=== PATIENT | female | born 1950 | race Caucasian/White ===

== ENCOUNTER → 2016-07-26 | Outpatient (CLI) | payer OTHER | LOC: FIMAGING 15:53 | PROVIDERS: ATTEND Internal Medicine | DX: Z12.31 Encounter for screening mammogram for malignant neoplasm of breast (principal) | CPT/HCPCS: G0202 ==

== ENCOUNTER → 2017-02-18 | Outpatient (CLI) | payer OTHER | LOC: FIMAGING 14:44 | PROVIDERS: ATTEND Internal Medicine | DX: Z13.820 Encounter for screening for osteoporosis (principal); E07.9 Disorder of thyroid, unspecified ==

== ENCOUNTER → 2017-08-20 | Outpatient (CLI) | payer OTHER ==
[~2017-08-20] MED LIST: IOPAMIDOL (ISOVUE-300) 100 ML BTL ONE
== END ==
LOC: FIMAGING 07:38
PROVIDERS: ATTEND Internal Medicine
DX: R10.812 Left upper quadrant abdominal tenderness (principal); R07.9 Chest pain, unspecified; K76.89 Other specified diseases of liver; I77.810 Thoracic aortic ectasia; M51.36 Other intervertebral disc degeneration, lumbar region
CPT/HCPCS: 71260; 74160; Q9967

== ENCOUNTER 2017-09-13 22:10 | Inpatient (IN) | payer OTHER ==
[2017-09-13] MEDS ORDERED: NS 1,000 ML IV ONE (22:19)
--- NOTE | 2017-09-13 22:19 | EDPHY ---
H & P Stated Complaint: Chest pain x1 hour, back pain, abd pain Time Seen by Provider: 09/13/17 22:19 HPI/ROS: HPI CHIEF COMPLAINT: Abdominal pain, chest pain, back pain HISTORY OF PRESENT ILLNESS: This patient is 66-year-old female, she states she has a history of hypertension, hyperlipidemia and thyroid disease, she presents emergency room with left upper quadrant abdominal pain that radiates up into her back intrascapular early and then goes and wraps around to her chest. She states this is the 3rd episode of this. She states this started 2 hr ago while she was at rest. She has had 3 episodes of this including the 1 tonight she states she seen her primary care doctor for this multiple times and had blood work performed and even had a CT scan of her chest abdomen pelvis she states that his wall normal. This was done in August. She was told if it happened to her again she should seek medical attention in the emergency room. Upon arrival to the emergency room she does complain of some chest discomfort, back pain and left upper quadrant abdominal pain. She denies fever. Denies pleuritic pain or significant shortness of breath. She does state typically gets better after she has a vomiting episode. However takes her few days to recover. Additionally patient reports increasing fullness and does not have an appetite. Additionally patient reports she due for stress test this Friday. Past Medical History: Hypertension, hyperlipidemia, thyroid disease Past Surgical History: Bilateral knee replacements Social History: Denies drugs alcohol tobacco. Family History: Noncontributory ROS REVIEW OF SYSTEMS: A comprehensive 10 point review of systems is otherwise negative aside from elements mentioned in the history of present illness. Exam Constitutional triage nursing summary reviewed, vital signs reviewed, awake/ alert. Eyes normal conjunctivae and sclera, EOMI, PERRLA. HENT normal inspection, atraumatic, moist mucus membranes, no epistaxis, neck supple/ no meningismus, no raccoon eyes. Respiratory clear to auscultation bilaterally, normal breath sounds, no respiratory distress, no wheezing. Cardiovascular rate normal, regular rhythm, no murmur, no edema, distal pulses normal. Gastrointestinal soft, non-tender, no rebound, no guarding, normal bowel sounds, no distension, no pulsatile mass. Genitourinary no CVA tenderness. Musculoskeletal no midline vertebral tenderness, full range of motion, no calf swelling, no tenderness of extremities, no meningismus, good pulses, neurovascularly intact. Skin pink, warm, & dry, no rash, skin atraumatic. Neurologic awake, alert and oriented x 3, AAOx3, moves all 4 extremities equally, motor intact, sensory intact, CN II-XII intact, normal cerebellar, normal vision, normal speech. Psychiatric normal mood/affect. Heme/Lymph/Immune no lymphadenopathy. Differential diagnosis includes but is not limited to: ACS, atypical chest pain , pneumothorax, pneumonia, pulmonary embolism, aortic dissection, congestive heart failure, tumor, musculoskeletal pain, esophageal pain, GERD, peptic ulcer disease, pancreatitis Differential diagnosis includes but is not limited to and in no particular order: Bowel obstruction, appendicitis, gallbladder disease, diverticulitis, colitis, enteritis, perforated viscus, gastritis, GERD, esophagitis, urinary tract infection, pyelonephritis, kidney stones Medical Decision Making: Plan for this patient IV establishment, IV fluid bolus , check D-dimer, check troponin, full monitoring coordinator, chest x-ray, low threshold for CT angiogram chest. Evaluate for chest pain abdominal pain back pain. Re-evaluation: EKG interpretation by me on record in [facility] system. Impression time of EKG 2226, sinus rhythm rate of 61, T-wave abnormality lead 3. No ST elevation no ST depression subtle T-wave abnormalities V1 V2 flattening in V3. Troponin 0.00 Repeat EKG time a repeat EKG 2319, this is sinus rhythm rate of 54 some motion artifact in the lateral leads [address] elevation no significant ST depression or T-wave abnormality seen in V1 V2 flattening in V3. CT angiogram chest abdomen pelvis with IV contrast shows no evidence of aortic dissection. Noted slightly at enlarged aorta. Given the patient's abnormal EKG T-wave abnormalities, the complaint of chest pain, abdominal pain back pain patient need to be admitted the hospital for further evaluation this and stress test. Risk factors include her age, obesity, hypertension, hyperlipidemia HEART Score for Major Cardiac Events from [email or web address] on 09/13/2017 All calculations should be rechecked by clinician prior to use RESULT SUMMARY: 5 points Moderate Score (4-6 points) Risk of MACE of 12-16.6%. INPUTS: History > 1 = Moderately suspicious EKG > 1 = Non-specific repolarization disturbance Age > 2 = 65 Risk factors > 1 = 1-2 risk factors Initial troponin > 0 = normal limit 2354: Patient re-evaluated this time she is chest pain-free. Resting comfortably. Agrees for hospital admission. Source: Patient - Personal History Current Tetanus Diphtheria and Acellular Pertussis (TDAP): No - Medical/Surgical History Hx Asthma: No Hx Chronic Respiratory Disease: No Hx Diabetes: No Hx Cardiac Disease: Yes Hx Renal Disease: No Hx Cirrhosis: No Hx Alcoholism: No Hx HIV/AIDS: No Hx Splenectomy or Spleen Trauma: No Other PMH: Hypothyroid,HTN,anxiety,heart murmur,Gerd - Social History Smoking Status: Never smoked Constitutional: Initial Vital Signs Temperature (C) 36.7 C 09/13/17 22:14 Heart Rate 66 09/13/17 22:14 Respiratory Rate 20 09/13/17 22:14 O2 Sat (%) 96 09/13/17 22:14 O2 Delivery Mode Room Air O2 (L/minute) 2 Allergies/Adverse Reactions: Tetanus Vaccines and Toxoid [Tetanus Vaccines & Toxoid] Allergy (Verified 22:14) Other-Enter Comments Home Medications: Medication Instructions Recorded Atorvastatin Calcium 10 mg PO DAILY 09/14/17 Hydrochlorothiazide [HCTZ (*)] 25 mg PO DAILY 09/14/17 Lansoprazole 30 mg PO DAILY 09/14/17 Levothyroxine Sodium 150 mcg PO DAILY 09/14/17 Lisinopril [Zestril 2.5 mg (*)] 2.5 mg PO DAILY 09/14/17 Acetaminophen [Tylenol ES 500 mg 1,000 mg PO Q8H tab 09/17/17 (*)] HYDROmorphone HCL [Dilaudid 2 mg 2 - 4 mg PO Q4H PRN #10 tab 09/17/17 (*)] Ibuprofen [Motrin (*)] 200 - 400 mg PO DAILY PRN #0 09/17/17 Ketorolac Tromethamine [Toradol 1 tab PO Q6 4 Days tab 09/17/17 10mg tab] Medical Decision Making - Data Points Laboratory Results: Laboratory Results 09/13/17 22:30 09/14/17 03:55 Medications Given: Discontinued Medications Acetaminophen (Tylenol) 650 mg PO Q4HRS PRN PRN Reason: Pain, Mild/Fever, Can Take PO Stop: 03/13/18 00:32 Last Admin: 09/15/17 14:43 Dose: 325 mg Acetaminophen (Tylenol) 1,000 mg PO Q8H [facility] Stop: 03/15/18 14:59 Last Admin: 09/17/17 15:06 Dose: 1,000 mg Al Hydroxide/Mg Hydroxide (Maalox Susp) 30 ml PO EDNOW ONE Stop: 09/14/17 00:15 Last Admin: 09/14/17 00:20 Dose: 30 ml Atorvastatin Calcium (Lipitor) 10 mg PO DAILY [facility] Stop: 03/13/18 17:14 Last Admin: 09/17/17 08:03 Dose: 10 mg Bupivacaine HCl/Epinephrine Bitart (Bupivacaine/Epi) Confirm Administered Dose 30 ml .ROUTE .STK-MED ONE Stop: 09/16/17 12:22 Last Admin: 09/16/17 15:55 Dose: Not Given Cefazolin Sodium (Ancef Syringe) Confirm Administered Dose 1 gm .ROUTE .STK-MED ONE Stop: 09/16/17 13:32 Last Admin: 09/16/17 13:48 Dose: 1 gm Fentanyl (Sublimaze) 25 - 100 mcg IVP Q5M PRN PRN Reason: PACU, IMMEDIATE Pain control Stop: 09/16/17 14:38 Last Admin: 09/16/17 15:03 Dose: 25 mcg Heparin Sodium (Porcine) (Heparin Sc Injection) Confirm Administered Dose 5,000 unit .ROUTE .STK-MED ONE Stop: 09/16/17 13:32 Last Admin: 09/16/17 13:48 Dose: 5,000 unit Hydrochlorothiazide (Hydrochlorothiazide) 25 mg PO DAILY [facility] Stop: 03/13/18 17:14 Last Admin: 09/17/17 08:04 Dose: 25 mg Hydromorphone HCl (Dilaudid) 0.2 - 0.4 mg IVP Q1H PRN PRN Reason: Pain, Severe Unable to Take PO Stop: 09/26/17 15:00 Last Admin: 09/17/17 14:43 Dose: 0.2 mg Hyoscyamine Sulfate (Levsin, Hyomax-Sl) 0.25 mg PO EDNOW ONE Stop: 09/14/17 00:15 Last Admin: 09/14/17 00:20 Dose: 0.25 mg Sodium Chloride (Ns) 1,000 mls @ 0 mls/hr IV EDNOW ONE; Wide Open PRN Reason: Protocol Stop: 09/13/17 22:20 Last Admin: 09/13/17 23:07 Dose: 1,000 mls Lactated Ringer's (Lr) 1,000 mls @ 0 mls/hr IV ONCE ONE PRN Reason: As Directed Stop: 09/16/17 11:56 Last Admin: 09/16/17 12:17 Dose: 1,000 mls Cefazolin Sodium/Dextrose (Ancef 2 Gm) 100 mls @ 200 mls/hr IV ONCALL ONE Stop: 09/16/17 13:29 Last Admin: 09/16/17 12:55 Dose: 100 mls Lactated Ringer's (Lr) 1,000 mls @ 100 mls/hr IV CONT [facility] Stop: 03/15/18 14:59 Last Admin: 09/16/17 19:32 Dose: 1,000 mls Cefazolin Sodium/Dextrose (Ancef 2 Gm) 100 mls @ 200 mls/hr IV Q8H [facility] Stop: 09/17/17 05:29 Last Admin: 09/17/17 05:49 Dose: 100 mls Iothalamate Meglumine (Conray) Confirm Administered Dose 50 ml IV .STK-MED ONE Stop: 09/16/17 12:22 Last Admin: 09/16/17 15:55 Dose: Not Given Ketorolac Tromethamine (Toradol) 30 mg IVP Q6HRS [facility] Stop: 09/21/17 17:59 Last Admin: 09/17/17 12:27 Dose: 30 mg Levothyroxine Sodium (Synthroid) 150 mcg PO DAILY [facility] Stop: 03/13/18 17:14 Last Admin: 09/17/17 08:04 Dose: 150 mcg Lidocaine (Lidocaine 2% Viscous) 15 ml PO EDNOW ONE Stop: 09/14/17 00:15 Last Admin: 09/14/17 00:20 Dose: 15 ml Lisinopril (Zestril) 2.5 mg PO DAILY [facility] Stop: 03/13/18 17:14 Last Admin: 09/17/17 08:04 Dose: 2.5 mg Lorazepam (Ativan Injection) 0.5 - 1 mg IVP Q6HRS PRN PRN Reason: Anxiety, Unable to Take PO Stop: 03/13/18 01:44 Last Admin: 09/14/17 02:39 Dose: 1 mg Miscellaneous Information (Patch Removal) 1 ea TD DAILY21 [facility] Stop: 03/13/18 20:59 Last Admin: 09/17/17 00:11 Dose: Not Given Miscellaneous Medication (Icy Hot Lidocaine/Menthol 4%/1% Patch) 1 patch TD DAILY [facility] Stop: 03/13/18 08:59 Last Admin: 09/17/17 08:05 Dose: Not Given Morphine Sulfate (Morphine) 1 - 2 mg IVP Q1HR PRN PRN Reason: Pain, Severe Unable to Take PO Stop: 09/24/17 00:32 Last Admin: 09/14/17 01:18 Dose: 2 mg Morphine Sulfate (Morphine) 1 - 4 mg IVP Q10M PRN PRN Reason: PACU, PAIN Stop: 09/16/17 14:38 Last Admin: 09/16/17 15:10 Dose: 1 mg Ondansetron HCl (Zofran) 4 mg IVP EDNOW ONE Stop: 09/14/17 00:32 Last Admin: 09/14/17 00:34 Dose: 4 mg Pantoprazole Sodium (Protonix) 40 mg IVP ONCE ONE Stop: 09/14/17 01:58 Last Admin: 09/14/17 02:29 Dose: 40 mg Pantoprazole Sodium (Protonix) 40 mg PO DAILY [facility] Stop: 03/13/18 17:14 Last Admin: 09/17/17 08:04 Dose: 40 mg Promethazine HCl (Phenergan) 6.25 - 12.5 mg IVP Q6HRS PRN PRN Reason: Nausea/Vomiting, Can't Take PO Stop: 03/13/18 01:06 Last Admin: 09/14/17 02:39 Dose: 12.5 mg Point of Care Test Results: Chemistry 09/13/17 22:32 POC Troponin I 0.00 ng/mL ng/mL (0.00-0.08) Departure - Departure Disposition: [facility] Acute Clinical Impression: Abnormal EKG Chest pain Qualifiers: Chest pain type: unspecified Qualified Code(s): R07.9 - Chest pain, unspecified Condition: Good
--- NOTE | 2017-09-13 22:29 | CPEKG ---
Heart Rate: 61 RR Interval: 984 P-R Interval: 148 QRSD Interval: 96 QT Interval: 460 QTC Interval: 464 P [place]: 33 QRS [place]: -25 T Wave [place]: 11 EKG Severity - BORDERLINE ECG - EKG Impression: SINUS RHYTHM EKG Impression: BORDERLINE LEFT AXIS DEVIATION EKG Impression: BORDERLINE T ABNORMALITIES, ANTERIOR LEADS Electronically Signed By: Obey Gomez 14-Sep-2017 07:37:44
[2017-09-13 22:54] LABS: INR 0.96 (0.83-1.16)
[2017-09-13 23:05] LABS: PLATELET COUNT 272 10^3/uL (150-400)
[2017-09-13] MEDS ORDERED: IOPAMIDOL (ISOVUE 370) 100 ML BTL IV ONE (23:17)
[2017-09-14] MEDS ORDERED: MAG HYDROX/AL HYDROX/SIMETH 30 ML UDCUP PO ONE (00:14)
[2017-09-14] MEDS ORDERED: LIDOCAINE 2% VISCOUS 15 ML UDCUP PO ONE (00:14)
[2017-09-14] MEDS ORDERED: HYOSCYAMINE SULFATE 0.125 MG TAB PO ONE (00:14)
[2017-09-14] MEDS ORDERED: ONDANSETRON 4 MG/2 ML VIAL IVP ONE (00:31)
[2017-09-14] MEDS ORDERED: ONDANSETRON 4 MG/2 ML VIAL ONE (00:32)
[2017-09-14] MEDS ORDERED: ONDANSETRON 4 MG/2 ML VIAL IVP PRN (00:33)
[2017-09-14] MEDS ORDERED: NITROGLYCERIN 0.4 MG BTL SL PRN (00:35)
[2017-09-14] MEDS ORDERED: PROMETHAZINE HCL 25 MG/ML INJ IVP PRN (01:07)
[2017-09-14] MEDS ORDERED: LORazepam 2 MG/ML INJ IVP PRN (01:45)
[2017-09-14] MEDS ORDERED: PANTOPRAZOLE SODIUM 40 MG VIAL IVP ONE (01:57)
--- NOTE | 2017-09-14 02:11 | PDGENHP ---
History and Physical - Chief Complaint Left lower chest pain. - History of Present Illness Source-patient provides history appears reliable. EMR reviewed and case discussed with ED provider. HPI-this is a very pleasant 66-year-old female with history of HTN, HLD, GERD, hypothyroidism, anxiety, obesity(BMI 38.8) who presents emergency department today with complaints of left lower chest left upper abdominal pain. Patient reports pain is aching below her ribs. Shortly after onset it will radiate straight across her abdomen upper abdomen and then radiate into her shoulder blades and mid to lower back. Patient denies any radicular type symptoms. No associated diaphoresis, shortness of breath, palpitations. Patient denies any orthopnea or PND. She denies any lower extremity edema. Patient's pain is occasionally reproducible. Onset can be at rest or with activity. Patient denies any known association with oral intake or foods. Patient denies any reflux type symptoms or burning. No fevers chills or recent sick contacts. Patient denies any melena or hematochezia. No diarrhea. Patient without a known history of peptic ulcer disease. She does take lansoprazole on a daily basis. History Information - Allergies/Home Medication List Allergies/Adverse Reactions: Tetanus Vaccines and Toxoid [Tetanus Vaccines & Toxoid] Allergy (Verified 22:14) Other-Enter Comments Home Medications: Atorvastatin Calcium [Lipitor 10 mg (*)] 10 mg PO DAILY 09/21/14 [Last Taken 09/13 07:15] Hydrochlorothiazide [HCTZ (*)] 25 mg PO DAILY 09/21/14 [Last Taken 07/04/15 09: 00] Lansoprazole [Lansoprazole 30 mg tab] 30 mg PO DAILY 09/21/14 [Last Taken 07:15] Levothyroxine [Synthroid 137 mcg (*)] 137 mcg PO DAILY06 09/21/14 [Last Taken 07:15] Lisinopril [Zestril 2.5 mg (*)] 2.5 mg PO DAILY 09/21/14 [Last Taken 07/04/15 09 :00] Sertraline HCl [Zoloft 50mg (*)] 50 mg PO DAILY 09/21/14 [Last Taken 07/05/15 07 :15] I have personally reviewed and updated: family history, medical history, social history, surgical history - Past Medical History arthritis (Degenerative joint disease status post bilateral total knee arthroplasty.), hypertension, hyperlipidemia Additional medical history: Anxiety, heart murmur, hypothyroidism - Surgical History Additional surgical history: Bilateral TKA. BTL. - Family History Negative for: diabetes type II, CAD Additional family history: Patient denies any known coronary artery disease or hypertension on her maternal side. Patient does not know her father or his past medical history. - Social History Smoking Status: Never smoked Alcohol Use: Occasionally Drug Use: None Additional social history: Patient is and lives with her . Cor status-full. Review of Systems Review of Systems: ROS: 10pt was reviewed & negative except for what was stated in HPI & below Constitutional: Reports: no symptoms EENMT: Reports: no symptoms Cardiac: Reports: chest pain (See HPI). Denies: edema, palpitations Respiratory: Reports: no symptoms Gastrointestinal: Reports: vomitting, nausea. Denies: black stools, blood streaked stools, rectal bleeding, abdominal pain, diarrhea Genitourinary: Reports: no symptoms Muscolosketal: Reports: back pain, muscle pain (Bilateral shoulder blades and down her back.) Skin: Reports: no symptoms Neurological: Reports: no symptoms Hematologic/Lymphatic: Reports: no symptoms Physical Exam Physical Exam: Selected Entries 09/13/17 09/14/17 22:14 00:00 Heart Rate 66 55 L Respiratory 20 16 Rate O2 Sat (%) 96 98 Temperature (C) 36.7 C Blood Pressure 183/72 H Mean Arterial 109 H Pressure (MAP) O2 Delivery Room Air Room Air Mode Temperature Oral Source Temp Pulse Resp BP Pulse Ox 36.7 C 56 L 16 131/57 H 95 09/13/17 22:15 09/14/17 00:30 09/14/17 00:30 09/14/17 00:30 09/14/17 00:30 Constitutional: obese, uncomfortable, other (NAD. Patient is actively vomiting in the early part of my interview. She does appear uncomfortable. Nontoxic.) Eyes: PERRL, anicteric sclera, EOMI (Grossly normal) Ears, Nose, Mouth, Throat: dry mucous membranes, other (No nasal discharge.), No poor dentition Cardiovascular: regular rate and rhythym, no murmur, rub, or gallop, pulses symmetric bilaterally, No edema Peripheral Pulses: 1+: dorsalis-pedis (R), dorsalis-pedis (L) Respiratory: no respiratory distress, no rales or rhonchi, clear to auscultation , No reduced air movement, No respiratory distress Gastrointestinal: normoactive bowel sounds, soft, non-tender abdomen, no palpable masses, tenderness (Left upper quadrant below the ribs. No rebound or guarding.), other (Obese abdomen.), No guarding, No distension Genitourinary: no bladder tenderness, No rodríguez in urethra Skin: warm, normal color, no rashes or abrasions Musculoskeletal: full muscle strength (Patient sits up independently.) Neurologic: AAOx3, sensation intact bilaterally, other (Grossly nonfocal exam.) Psychiatric: interacting appropriately, not anxious, not encephalopathic, thought process linear, anxious, No depressed, No suicidal ideation, No poor insight, No poor judgement, No poor memory Lymph, Heme, Immunologic: No lymphadenopathy Lab Data & Imaging Review 09/13/17 22:30 09/13/17 22:30 WBC 8.27 10^3/uL (3.80-9.50) 09/13/17 22:30 RBC 5.31 10^6/uL (4.18-5.33) 09/13/17 22:30 Hgb 15.9 g/dL (12.6-16.3) 09/13/17 22:30 Hct 46.6 % (38.0-47.0) 09/13/17 22:30 MCV 87.8 fL (81.5-99.8) 09/13/17 22:30 MCH 29.9 pg (27.9-34.1) 09/13/17 22:30 MCHC 34.1 g/dL (32.4-36.7) 09/13/17 22:30 RDW 14.3 % (11.5-15.2) 09/13/17 22:30 Plt Count 272 10^3/uL (150-400) 09/13/17 22:30 MPV 10.1 fL (8.7-11.7) 09/13/17 22:30 Neut % (Auto) 58.5 % (39.3-74.2) 09/13/17 22:30 Lymph % (Auto) 27.4 % (15.0-45.0) 09/13/17 22:30 [place] % (Auto) 9.2 % (4.5-13.0) 09/13/17:30 Eos % (Auto) 4.0 % (0.6-7.6) 09/13/17:30 Baso % (Auto) 0.5 % (0.3-1.7) 09/13/17: Nucleat RBC Rel Count 0.0 % (0.0-0.2) 09/13/17:30 Absolute Neuts (auto) 4.84 10^3/uL (1.70-6.50) 09/13/17: Absolute Lymphs (auto) 2.27 10^3/uL (1.00-3.00) 09/13/17: Absolute Monos (auto) 0.76 10^3/uL (0.30-0.80) 09/13/17:30 Absolute Eos (auto) 0.33 10^3/uL (0.03-0.40) 09/13/17:30 Absolute Basos (auto) 0.04 10^3/uL (0.02-0.10) 09/13/17: Absolute Nucleated RBC 0.00 10^3/uL (0-0.01) 09/13/17: Immature Gran % 0.4 % (0.0-1.1) 09/13/17: Immature Gran # 0.03 10^3/uL (0.00-0.10) 09/13/17: PT 13.0 SEC (12.0-15.0) 09/13/17:30 INR 0.96 (0.83-1.16) 09/13/17:30 APTT 23.3 SEC (23.0-38.0) 09/13/17: D-Dimer 0.34 ug/mLFEU (0.00-0.50) 09/13/17:30 Sodium 142 mEq/L (135-145) 09/13/17:30 Potassium 4.1 mEq/L (3.3-5.0) 09/13/17:30 Chloride 102 mEq/L (97-110) 09/13/17 22:30 Carbon Dioxide 27 mEq/l (22-31) 09/13/17 22:30 Anion Gap 13 mEq/L (8-16) 09/13/17 22:30 BUN 17 mg/dL (7-23) 09/13/17 22:30 Creatinine 0.8 mg/dL (0.6-1.0) 09/13/17 22:30 Estimated GFR > 60 09/13/17 22:30 Glucose 114 mg/dL (70-100) H 09/13/17 22:30 Calcium 9.8 mg/dL (8.5-10.4) 09/13/17 22:30 Magnesium 2.1 mg/dL (1.6-2.3) 09/13/17:30 Total Bilirubin 0.4 mg/dL (0.1-1.4) 09/13/17:30 Conjugated Bilirubin 0.2 mg/dL (0.0-0.5) 09/13/17 22:30 Unconjugated Bilirubin 0.2 mg/dL (0.0-1.1) 09/13/17 22:30 AST 23 IU/L (14-46) 09/13/17 22:30 ALT 42 IU/L (9-52) 09/13/17 22:30 Alkaline Phosphatase 98 IU/L (38-126) 09/13/17 22:30 POC Troponin I 0.00 ng/mL (0.00-0.08) 09/13/17 22:32 NT-Pro-B Natriuret Pep 84 pg/mL (0-125) 09/13/17 22:30 Total Protein 7.1 g/dL (6.3-8.2) 09/13/17 22:30 Albumin 4.3 g/dL (3.5-5.0) 09/13/17 22:30 Lipase 215 IU/L (23-300) 09/13/17 22:30 Imaging Review: Portable chest, single view. History: Chest pain. Findings: Heart size is within normal limits. Pulmonary vascularity is normal. The lungs are clear of acute consolidation. Degenerative change thoracic spine with a levoscoliotic curvature. Degenerative change in both shoulders. Impression: No evidence for acute cardiopulmonary abnormality. CT Chest Angiogram Comparison: 20 Aug 2017 Indication: Chest pain. Ascending aortic aneurysm. Technique: Thinly collimated multidetector helical CT imaging was performed through the chest while 90 mL of Isovue-370 were injected intravenously without complication. The images were then transferred to an independent workstation where multiplanar reconstructions were performed. Dose reduction techniques were utilized. Findings: CT Chest Angiogram: The pulmonary arterial system is well opacified. No intraluminal filling defects to suggest acute or chronic thrombopulmonary embolic disease. Descending thoracic aorta is mildly dilated at 4.2 cm at the level of the main pulmonary artery as seen previously.. No evidence for dissection CT Chest: The lungs are clear. No pulmonary nodule, mass, or enlarged lymph nodes. Heart size is normal. No pericardial or pleural effusion. Small hiatal hernia. Fatty infiltration the liver. Impression: Stable mild dilatation of the ascending thoracic aorta without evidence for dissection. Results called and discussed with Cesar Nichols MD at 09/13/2017 23:55. CT angiogram abdomen with IV contrast. History: Ascending thoracic aortic aneurysm. Chest pain. Evaluate for dissection. Comparison: July 2017. Technique: 1.5 mm helical images were obtained of the abdomen and pelvis from the level of the diaphragms through the symphysis pubis. This was done posterior views contrast with 90 mL Isovue- 370 contrast. Multiplanar and 3-D evaluation was performed the workstation. Radiation dose reduction technique was utilized. Findings: CT Angiogram: The abdominal aorta is normal in diameter without evidence for aneurysm or dissection. Celiac and superior mesenteric arteries are unremarkable without evidence for significant stenosis or dissection. Single renal arteries are seen bilateral. CT abdomen: Decreased attenuation to the liver diffusely. No focal liver lesion. Gallbladder is unremarkable. Pancreas is unremarkable. Spleen is unremarkable. Both adrenal glands are normal in size and appearance. Both kidneys enhance normally without evidence for mass or hydronephrosis. Parapelvic cyst left kidney. CT Pelvis: Diverticulosis is seen in the sigmoid colon without evidence for diverticulitis. No significant free fluid in the pelvis. Degenerative change lumbar spine with mild grade 1 anterior spondylolisthesis of L4 on L5. Impression: No evidence for abdominal aortic aneurysm or dissection. Chronic findings as above which are stable. Visualized and Interpreted Chest x-ray results: Yes Visualized and Interpreted imaging results: Yes EKG additional interpertation: NSR in the 60s. Lad. T-wave inversion lead III , V1 V2 and flattening in V3. No comparison EKGs available. Assessment & Plan Assessment: 66-year-old female with history of HTN, HLD, obesity (BMI of 38.8), hypothyroid who presents to the emergency department today with complaints of left lower chest/left upper quadrant abdominal pain. Chest pain (Acute) - DDX - angina versus gastritis versus atypical presentation for biliary dyskinesia. PE, aortic aneurysm, pancreatitis, acute cholecystitis has been ruled out with CTA chest abdomen and pelvis. Patient did develop some nausea after attempt to take in a GI cocktail. This has since been improving but patient notes that this is typical for the cycle of her symptoms. She was given Zofran in the emergency department before arrival. Will also add Phenergan. Ativan will be made available for spasm pain and nausea. Patient's HEART score is 5. She was initially scheduled for outpatient stress testing in 2 days will plan to accelerate plans for stress testing pending repeat troponin. Consider at some point on evaluation of patient's gallbladder with a HIDA. She has no stones or evidence of cholecystitis on CT abdomen. Back pain - patient is reporting spasm type pain in her back but radiating pain additionally from the left lower chest/ upper abdomen. Abnormal EKG (Acute) - nonspecific EKG changes. Patient has some T-wave inversions in lead 3 V1 V2. I do not have any previous EKGs at this time to compare. Will plan to repeat EKG in the morning. Patient has not had any further chest pain since arrival to the hospital however she did develop some nausea. Benign essential hypertension-resume patient's lisinopril and HCTZ. Blood pressures at this time are just slightly elevated but still acceptable for age. Additionally she is not quite feeling well and has been vomiting. GERD-patient reports that she takes lansoprazole on a daily basis. Now that she is actively vomiting will add on an additional dose of Protonix and resume oral PPI when her nausea is controlled. History of anxiety-continue patient's Zoloft. Hypothyroidism-continue patient's levothyroxine 150 mcg p.o. Daily HLD - continue statin. Lipid panel this morning. FEN - patient with active vomiting. IV fluids for gentle hydration overnight. Electrolyte monitoring replacement if needed. NPO for stress testing. Cor status-full Prophylaxis-SCDs holding anticoagulation for now. Consider if patient should stay need to stay additional hospital day. Encourage ambulation and mobilization. Disposition-patient has been admitted observation status on PCU floor for close cardiac monitoring pending further cardiac evaluation as noted above.
--- NOTE | 2017-09-14 02:25 | CPEKG ---
Heart Rate: 44 RR Interval: 1364 P-R Interval: 164 QRSD Interval: 94 QT Interval: 473 QTC Interval: 405 P [place]: 47 QRS [place]: -9 T Wave [place]: 7 EKG Severity - ABNORMAL ECG - EKG Impression: SINUS BRADYCARDIA EKG Impression: PROBABLE INFERIOR INFARCT, AGE INDETERMINATE Electronically Signed By: Jose Zuñiga 15-Sep-2017 05:51:34
--- NOTE | 2017-09-14 16:49 | ASMTCMCOM ---
CM Note CM Note Notes: Anticipate dc home when medically stable. CM available if needs/changes. Date Signed: 09/14/2017 04:48 PM Electronically Signed By:Kyra Rubi RN
[2017-09-14] MEDS: LIDOCAINE 4%/MENTHOL 1% PATCH TD SCH (17:09)
[2017-09-14] MEDS: PATCH REMOVAL 1 EA PATCH TD SCH (17:10)
--- NOTE | 2017-09-14 18:28 | HOSPPROG ---
Hospitalist Progress Note Assessment/Plan: Chest pain with abnormal EKG - CTA neg for PE or dissection. Trop neg x2. EKG with anterior T wave changes. No further chest pain today. -Inge stress test today, cards consult if abnormal Abdominal pain LUQ with N/V - CTA neg for dissection, thoracic aorta 4.2 cm. Query symptomatic hiatal hernia -Inge scan as above. If neg, would proceed with HIDA (no e/o cholecystitis on CT) followed by possible GI consult for possible endoscopy. -Cont PPI, anti-emetics Hypertension - cont home meds GERD - Cont PPI. Hypothyroidism - check TSH, cont levothyroxine. DVT PPLX - Lovenox Full code Dispo - change to inpt for ongoing workup of chest pain, abdominal pain and N/V. Subjective: Pt feels ok this am. Still some vague left sided abdominal pain. No chest pain or SOB. No nausea, vomited this am. NO fevers/chills. Objective: Vital Signs Temp Pulse Resp BP Pulse Ox 36.9 C 66 16 122/56 H 98 09/14/17 16:00 09/14/17 16:00 09/14/17 16:00 09/14/17 16:00 09/14/17 16:00 Laboratory Results 09/14/17 03:55 09/13/17 09/14/17 09/15/17 05:59 05:59 05:59 Intake Total 1000 780 Output Total 250 Balance 750 780 PT 13.0 SEC (12.0-15.0) 09/13/17 22:30 INR 0.96 (0.83-1.16) 09/13/17 22:30 - Physical Exam Constitutional: no apparent distress Eyes: PERRL Ears, Nose, Mouth, Throat: moist mucous membranes Cardiovascular: regular rate and rhythym Respiratory: no respiratory distress, clear to auscultation Gastrointestinal: normoactive bowel sounds, soft, non-tender abdomen Skin: warm Musculoskeletal: full muscle strength Neurologic: AAOx3 Psychiatric: interacting appropriately ICD10 Worksheet Patient Problems: Problems Problem Status Onset Abnormal EKG Acute Chest pain Acute Osteoarthritis of knee Acute Primary localized osteoarthritis of left knee Acute
[2017-09-14] MEDS: HYDROCHLOROTHIAZIDE 25 MG TAB PO SCH (19:21)
[2017-09-14] MEDS: ATORVASTATIN CALCIUM 10 MG TAB PO SCH (19:21)
[2017-09-14] MEDS: PANTOPRAZOLE SODIUM 40 MG TAB PO SCH (19:21)
[2017-09-14] MEDS: LISINOPRIL 2.5 MG TAB PO SCH (19:22)
[2017-09-14] MEDS: LEVOTHYROXINE 150 MCG TAB PO SCH (19:22)
[2017-09-15] MEDS: ACETAMINOPHEN 325 MG TAB PO PRN ×3 (04:27→14:43)
[2017-09-15] MEDS: HYDROCHLOROTHIAZIDE 25 MG TAB PO SCH (08:40)
[2017-09-15] MEDS: LEVOTHYROXINE 150 MCG TAB PO SCH (08:40)
[2017-09-15] MEDS: PANTOPRAZOLE SODIUM 40 MG TAB PO SCH (08:40)
[2017-09-15] MEDS: LISINOPRIL 2.5 MG TAB PO SCH (08:41)
[2017-09-15] MEDS: ATORVASTATIN CALCIUM 10 MG TAB PO SCH (08:41)
[2017-09-15] MEDS ORDERED: REGADENOSON 0.4 MG/5 ML SYR IVP ONE (10:23)
--- NOTE | 2017-09-15 11:12 | CPR ---
[f rep st] NONINVASIVE CARDIAC PROCEDURE REPORT DATE OF PROCEDURE: 09/15/2017 PROCEDURE: Lexiscan nuclear stress test. REASON FOR TEST: Chest discomfort radiating into back. DESCRIPTION OF PROCEDURE: Resting EKG shows a sinus bradycardia with a ventricular rate of 50. Infe rior T-wave inversion in lead III with Q-waves. There are no arrhythmias. Resting blood pressure is 132/98, resting heart rate 49, oxygen saturation 98%. She is asymptomatic. STRESS PORTION: Lexiscan was injected rapidly, followed by saline flush. Cardiolite was then inject ed, followed by saline flush. Peak blood pressure 150/90. Oxygen saturation 99%. Peak heart rate 7 8. She did feel flushed and had nausea with the infusion. There were no EKG changes. RECOVERY: Resting recovery blood pressure 134/90. Resting heart rate 74. Oxygen saturation 98%. H er signs and symptoms subsided spontaneously. She did have caffeine during the recovery period. At this time, she currently is stable for nuclear imaging. /[id number]/MODL
[2017-09-15] MEDS: LIDOCAINE 4%/MENTHOL 1% PATCH TD SCH (12:32)
--- NOTE | 2017-09-15 19:15 | HOSPPROG ---
Hospitalist Progress Note Assessment/Plan: DIAGNOSES: -abdominal back chest pain episodes associated with vomiting, unknown etiology -no findings of cardiac or vascular etiology or other concerning abnormalities on imaging and stress study so far As I listen to her story and look at all of the normal imaging and blood test results we have and the unremarkable examination at this time, my concern is that this is actually a symptom complex related to how low abdominal viscus, potentially her gallbladder or her gut. I have looked at her CT abdomen and do not see evidence of gallstones or other cystic disease, however CT can be insensitive and I do think we should have an ultrasound at this point. If she should have all gallstones present I would recommend a surgical consultation. I would consider the possibility of some type of intermittent obstructive syndrome but this should have been seen on the CT scan and seems unlikely. I would consider the possibility of a malignancy in the abdomen causing these symptoms, and I have seen various malignancies cause this syndrome in the setting of normal CT scan when the dimensions of individual tumor masses are small enough. She has had hysterectomy with removal of ovaries and so ovarian cancer would not be a cause here. A functional bowel syndrome could be possible and may need to be considered, however given her age, sudden onset of such a syndrome particularly with such dramatic symptoms that last hours followed by weeks of asymptomatic normal food consumption and digestion would seem quite unlikely for that syndrome. I think that if the ultrasound does not show gallbladder disease, a gastroenterology consult would be warranted. PLANS: * I have ordered an ultrasound to be done but this will be ordered for tomorrow morning since she has eaten today * I have discussed with her the possibility of doing this further workup either here or in the outpatient setting; at this time given the severity of her symptoms and the unknown cause she is not comfortable going home without further assessment. Will at least do the ultrasound here at this time but if this is normal the rest of her assessment can probably be done in the outpatient setting. Patient seen by me today on both multidisciplinary rounds and hospitalist rounds SUBJECTIVE: I reviewed the patient's symptoms in great detail with her. She has now had 3 episodes over the past 2 months. Each of these episodes comes after eating a meal although the medial itself is not unusual in any way compared which she normally eats. She describes to me episodes that actually start in the mid back with severe pain there which gradually work sepsis to the interscapular area and then comes around to the low substernal and epigastric area primarily on the left but then spreading across the upper abdomen. This is associated toward the end of the episode with protracted severe nausea and vomiting which empties her stomach followed by ongoing dry heaves and retching. These episodes in total last approximately 8-12 hours though the main part of the symptoms is more than 6 hr. They are not associated with any fever so far, any change in bowel function, or any bleeding. Aside from having had a meal she cannot identify any other triggers. She does not get short of breath or have cough or pleuritic pains and does not get leg pain or swelling or diaphoresis. OBJECTIVE Vitals reviewed: Mild hypertension otherwise normal without fever [place]aser, my review: All sinus Exam: alert oriented skin warm dry color ok resps not labored lungs clear BSs heart regular abd soft nondistended nontender, bowel sounds present essentially an unremarkable abdominal exam limbs warm, no edema iv site ok I reviewed her CT angiography abdomen images in detail with Dr. Jaswinder Guerrero of Radiology, and there is no evidence of any vascular disease affecting the gut or intra-abdominal organs. I reviewed her CT angio chest images myself and do not see any concerning abnormalities there. Lexiscan stress test done today I reviewed the images and discussed with Dr. Larson. LV function is preserved and there is no evidence of stress- induced ischemic change on the perfusion imaging Laboratory data: Cortisol level random this morning 30.9, TSH 0.046 Objective: Vital Signs Temp Pulse Resp BP Pulse Ox 36.6 C 61 12 167/71 H 93 09/15/17 15:03 09/15/17 15:03 09/15/17 15:03 09/15/17 15:03 09/15/17 15:03 Laboratory Results 09/14/17 03:55 09/14/17 09/15/17 09/16/17 06:59 06:59 06:59 Intake Total 1000 1480 Output Total 250 Balance 750 1480 PT 13.0 SEC (12.0-15.0) 09/13/17 22:30 INR 0.96 (0.83-1.16) 09/13/17 22:30 ICD10 Worksheet Patient Problems: Problems Problem Status Onset Abnormal EKG Acute Chest pain Acute Osteoarthritis of knee Acute Primary localized osteoarthritis of left knee Acute
[2017-09-15] MEDS: PATCH REMOVAL 1 EA PATCH TD SCH (21:00)
--- NOTE | 2017-09-16 09:16 | PDMN ---
Medical Necessity Medical necessity: MCG: M05 abd pain undg: ongoing med nec., req PT to be NPO - . further eval of abd pain needed > 2 midnights
--- NOTE | 2017-09-16 09:43 | CPEKG ---
Heart Rate: 54 RR Interval: 1111 P-R Interval: 164 QRSD Interval: 108 QT Interval: 492 QTC Interval: 467 P [place]: 39 QRS [place]: -17 T Wave [place]: 12 EKG Severity - NORMAL ECG - EKG Impression: SINUS RHYTHM Electronically Signed For: Jose Zuñiga 16-Sep-2017 09:44:23
[2017-09-16] MEDS: HYDROCHLOROTHIAZIDE 25 MG TAB PO SCH (09:55)
[2017-09-16] MEDS: ATORVASTATIN CALCIUM 10 MG TAB PO SCH (09:55)
[2017-09-16] MEDS: LEVOTHYROXINE 150 MCG TAB PO SCH (09:55)
[2017-09-16] MEDS: LIDOCAINE 4%/MENTHOL 1% PATCH TD SCH (09:55)
[2017-09-16] MEDS: LISINOPRIL 2.5 MG TAB PO SCH (09:57)
[2017-09-16] MEDS: PANTOPRAZOLE SODIUM 40 MG TAB PO SCH (09:58)
[2017-09-16] MEDS ORDERED: LR 1,000 ML IV ONE (11:55)
--- NOTE | 2017-09-16 12:04 | GCON ---
[f rep st] CONSULTATION REFERRING PHYSICIAN: Dr. Jama This patient was admitted for back pain that radiated from her back to the interscapular region to her abdomen. Extensive workup was undertaken for cardiac and vascular issues, and that work up was negative. Today, an ultrasound shows 1 gallstone and a sonographically positive Hurley sign. I was asked to see the patient in consultation by Dr. Jama. In reviewing her history, she has had 2 similar episodes starting on July 08, which have occurred approximately 1-1/2 hours to 2 hours after eating. The pain was described as intense, squeezing, and she could not find a comfortable position. MEDICATIONS: Include ibuprofen 200 to 400 mg daily, Atorvastatin 10 mg daily, hydrochlorothiazide 25 mg daily, Lansoprazole 30 mg daily, levothyroxine 150 mcg daily, and lisinopril 2.5 mg daily. She has previously had a tubal ligation, as well as a hysterectomy. ALLERGY: Tetanus. No other medication allergies. PHYSICAL EXAMINATION: GENERAL: She is awake and alert and quite pleasant. CURRENT VITAL SIGNS: Blood pressure 128/82 with a heart rate in the 50s to 60s , respirations are 12, room air sat is 96. LUNGS: Clear to auscultation. CARDIAC: Shows S1 and S2 to be normal. There is a normal split of S2 without murmurs, rubs, or gallops. ABDOMEN: Hypoactive bowel sounds. She is essentially nontender in all regions of her abdomen, but she does have a distinctly positive Hurley sign. LABORATORIES: Lipase of 215. Her bilirubin has been 0.4. AST and ALT are normal. Alkaline phosphatase is normal. I feel that she is a fit candidate for the proposed surgery, which will be a laparoscopic cholecystectomy with possible cholangiogram. She understands the planned surgery. She understands the possibility of retained common duct stones or formation of common duct stones in the future. She wishes to proceed as outlined. /[id number]/MODL MTDD
[2017-09-16] MEDS ORDERED: IOTHALAMATE MEG (CONRAY) 50 ML VIAL IV ONE (12:21)
--- NOTE | 2017-09-16 12:26 | PDANEPAE ---
ANE Past Medical History - Cardiovascular History Hx Hypertension: Yes Hx Arrhythmias: No Hx Chest Pain: No Hx Coronary Artery / Peripheral Vascular Disease: No Hx CHF / Valvular Disease: No Hx Palpitations: No Cardiovascular History Comment: htn. heart murmur- pre medicates prior to dentist. pcp monitors bp meds - Pulmonary History Hx COPD: No Hx Asthma/Reactive Airway Disease: No Hx Recent Upper Respiratory Infection: No Hx Oxygen in Use at Home: No Hx Sleep Apnea: No Sleep Apnea Screening Result - Last Documented: Positive Pulmonary History Comment: zachary triggers no dx - Neurologic History Hx Cerebrovascular Accident: No Hx Seizures: No Hx Dementia: No - Endocrine History Hx Diabetes: No Hypothyroid: Yes Hyperthyroid: No Obesity: yes, moderate Endocrine History Comment: hypothyroidism - Renal History Hx Renal Disorders: No - Liver History Hx Hepatic Disorders: No - Neurological & Psychiatric Hx Hx Neurological and Psychiatric Disorders: Yes Neurological / Psychiatric History Comment: anxiety - Cancer History Hx Cancer: Yes Cancer History Comment: basal cell skin ca in 1999 - Congenital Disorder History Hx Congenital Disorders: No - GI History GERD: mild Hx Gastrointestinal Disorders: Yes Gastrointestinal History Comment: reflux- uses otc. pain medications will cause constipation - Other Health History Other Health History: none - Chronic Pain History Chronic Pain: No - Surgical History Prior Surgeries: hysterectomy 2007. right knee arthroscopy 02/2008. left rotator cuff surgery 10/2006. tear duct surgery. t&a. tubal ligation ANE Review of Systems Review of Systems: - Exercise capacity Exercise capacity: <4 METS METS (RN): 4 METS ANE Patient History - Allergies Allergies/Adverse Reactions: Tetanus Vaccines and Toxoid [Tetanus Vaccines & Toxoid] Allergy (Verified 22:14) Other-Enter Comments - Home Medications Home Medications: Atorvastatin Calcium 10 mg PO DAILY 09/14/17 [Last Taken 09/13/17] Hydrochlorothiazide [HCTZ (*)] 25 mg PO DAILY 09/14/17 [Last Taken 09/13/17] Ibuprofen [Motrin (*)] 200 - 400 mg PO DAILY PRN 09/14/17 [Last Taken Unknown] Lansoprazole 30 mg PO DAILY 09/14/17 [Last Taken 09/13/17] Levothyroxine Sodium 150 mcg PO DAILY 09/14/17 [Last Taken 09/13/17] Lisinopril [Zestril 2.5 mg (*)] 2.5 mg PO DAILY 09/14/17 [Last Taken 09/13/17] - NPO status NPO Since - Liquids (Date): 09/16/17 NPO Since - Liquids (Time): 00:00 NPO Since - Solids (Date): 09/16/17 NPO Since - Solids (Time): 00:00 - Smoking Hx Smoking Status: Never smoked Marijuana use: No - Alcohol Use Alcohol Use: Occasionally - Family Anes Hx Family Anes Hx: neg - N/A Family Hx Anesthesia Complications: none ANE Labs/Vital Signs - Labs Result Diagrams: 09/13/17 22:30 09/14/17 03:55 - Vital Signs Blood Pressure: 111/82 Heart Rate: 81 Respiratory Rate: 12 O2 Sat (%): 93 Height: 167 cm Weight: 108.1 kg ANE Physical Exam - Airway Neck exam: FROM Mallampati Score: Class 2 Mouth exam: normal dental/mouth exam - Pulmonary Pulmonary: no respiratory distress, no rales or rhonchi, clear to auscultation - Cardiovascular Cardiovascular: regular rate and rhythym, no murmur, rub, or gallop - ASA Status ASA Status: III ANE Anesthesia Plan Anesthesia Plan: general endotracheal anesthesia Total IV Anesthesia: No
[2017-09-16] MEDS ORDERED: CEFAZOLIN 2 GM/DEXTROSE/100 ML BAG IV ONE (12:36)
[2017-09-16] MEDS ORDERED: fentaNYL 100 MCG/2 ML INJ ONE ×2 (12:49→14:53)
[2017-09-16] MEDS ORDERED: ROCURONIUM 50 MG/5 ML VIAL ONE (12:50)
[2017-09-16] MEDS ORDERED: DEXAMETHASONE 4 MG/ML VIAL ONE (12:50)
[2017-09-16] MEDS ORDERED: REMIFENTANIL HCL 1 MG VIAL ONE (12:50)
[2017-09-16] MEDS ORDERED: ONDANSETRON 4 MG/2 ML VIAL ONE (12:50)
[2017-09-16] MEDS ORDERED: KETOROLAC 30 MG/1 ML SDV ONE (12:50)
[2017-09-16] MEDS ORDERED: PROPOFOL/EMULSION 500 MG/50 ML BOTTLE IV ONE (12:50)
[2017-09-16] MEDS ORDERED: LIDOCAINE 2% 5 ML SDV ONE (12:58)
[2017-09-16] MEDS ORDERED: ceFAZolin 2 GM/DEXTROSE 100 ML IV ONE (13:00)
[2017-09-16] MEDS ORDERED: PHENYLEPHRINE HCL 100 MCG/ML SYR ONE (13:25)
[2017-09-16] MEDS ORDERED: ceFAZolin 1 GM/5 ML SYR ONE (13:31)
[2017-09-16] MEDS ORDERED: HEPARIN 5,000 UNIT/0.5 ML INJ ONE (13:31)
[2017-09-16] MEDS ORDERED: HYDROCODONE/APAP 5/325 TAB PO PRN (13:37)
[2017-09-16] MEDS ORDERED: oxyCODONE IR 5 MG TAB PO PRN (13:37)
[2017-09-16] MEDS ORDERED: LR 500 ML IV PRN (13:37)
[2017-09-16] MEDS ORDERED: PROMETHAZINE HCL 25 MG/ML INJ IVP PRN (13:37)
[2017-09-16] MEDS ORDERED: ACETAMINOPHEN 500 MG TAB PO PRN (13:37)
[2017-09-16] MEDS ORDERED: NALOXONE HCL 0.4 MG/ML INJ IVP PRN (13:37)
[2017-09-16] MEDS ORDERED: PHENYLEPHRINE HCL 100 MCG/ML SYR IVP PRN (13:37)
[2017-09-16] MEDS ORDERED: ONDANSETRON 4 MG/2 ML VIAL IVP PRN (13:37)
[2017-09-16] MEDS ORDERED: PROPOFOL 200 MG/20 ML VIAL ONE (13:45)
[2017-09-16] MEDS: BUPIVACAINE/EPI 0.5% 30 ML SDV ONE ×2 (13:49→15:55)
[2017-09-16] MEDS ORDERED: GLYCOPYRROLATE 0.2 MG/1 ML VIAL ONE ×3 (14:05)
--- NOTE | 2017-09-16 14:45 | POSTANESTH ---
Post Anesthetic Evaluation Cardiovascular Status: Normal, Stable Respiratory Status: Normal, Stable Level of Consciousness/Mental Status: Can Participate in Eval Pain Control: Adequate, Prn Tx Ordered Nausea/Vomiting Control: Adequate, Prn Tx Ordered Complications Possibly Related to Anesthesia: None Noted
--- NOTE | 2017-09-16 14:48 | POSTOPPROG ---
Post Op Note Date of Operation: 09/16/17 Surgeon: Kendrick Bear Anesthesia: GET(General Endotracheal) Pre-op Diagnosis: acute cholesystitis with cholelithisis Post-op Diagnosis: acute cholesystitis with cholelithisis Indication: acute cholesystitis with cholelithisis Procedure: Laparoscopic cholecystectomy Findings: acute cholesystitis with cholelithisis Inf/Abcess present in the surg proc area at time of surgery?: No EBL: Minimal Complications: Small operative bile leak; identified, contained, irrigated and drained Drains: Alfa Wadsworth (In biliary fossa to morrisons pouch)
[2017-09-16] MEDS: fentaNYL 100 MCG/2 ML INJ IVP PRN ×2 (14:54→15:03)
[2017-09-16] MEDS ORDERED: LR 1,000 ML IV SCH (15:00)
[2017-09-16] MEDS ORDERED: HYDROmorphone HCL/NS 0.5 MG/ML SYR IVP PRN (15:01)
--- NOTE | 2017-09-16 16:15 | GOP ---
[f rep st] OPERATIVE REPORT DATE OF OPERATION: 09/16/2017 SURGEON: Kendrick Bear MD ANESTHESIA: General endotracheal. PREOPERATIVE DIAGNOSIS: Acute cholecystitis with cholelithiasis. POSTOPERATIVE DIAGNOSIS: Acute cholecystitis with cholelithiasis. PROCEDURE PERFORMED: Laparoscopic cholecystectomy. FINDINGS: Acute cholecystitis with cholelithiasis. ESTIMATED BLOOD LOSS: Minimal. Note, a small operative bile leak was identified, contained, irrigated and drained. There is a Alfa Wadsworth drain, which goes across the biliary fossa into Morison pouch. INDICATIONS: Acute cholecystitis with cholelithiasis. DESCRIPTION OF PROCEDURE: The patient was placed on the operating table in supine position. After induction of adequate general endotracheal anesthesia, the abdomen was carefully prepped and draped. Note an orogastric tube has been placed. A surgical time-out was carried out and agreed to by all members of the operative team. A curvilinear incision was planned at the umbilicus. The skin was sharply incised. Dissection continued with a combination of Bovie electrocautery and spreading technique to expose the anterior rectus sheath. This was elevated between Allis clamps on either side of the midline. It was sharply, but cautiously incised. She previously had had a laparoscopic procedure. A careful spreading technique with a hemostat was used to enter the peritoneum. No bowel was injured in this process. A pursestring of #0 PDS was then placed in the fascia. An 11-12 mm disposable James port was placed. Intra-abdominal insufflation was carried out to 15 mmHg at high flow. She was placed in reverse Trendelenburg. A 5 mm port was placed in the mid epigastrium. Two right upper quadrant 5 mm ports were also placed. The gallbladder was not tensely distended, but distended. One Endo Allis was placed on the fundus and infundibulum. Adherent mesentery was carefully easily stripped from the anterior abdominal wall. Irrigation with heparin and Ancef-containing irrigant was carried out. Calot's triangle was carefully exposed. The critical view was obtained. The cystic duct was cleared circumferentially and was approximately 2.5 mm in diameter. The cystic artery was identified. It was doubly clipped on the patient's side, singly clipped on the gallbladder side. The cystic duct was triply clipped on the patient's side and singly clipped on the gallbladder side. Both were now divided. Using a hook cautery at 30 watt seconds, the gallbladder was carefully removed from its bed. Very close to the fundus, a small leak developed. This was quickly clamped with the grasper. Irrigation with heparin and Ancef-containing irrigant was carried out. The gallbladder removal from the biliary fossa was completed. The gallbladder was placed in an EndoCatch bag and delivered via the umbilical port site. Pneumoperitoneum was re-established. Vigorous irrigation was carried out. Hemostasis was checked and found to be excellent. A 10 flat DIANA drain was carefully placed leading from Morison pouch to the biliary fossa to the skin. This was secured to the skin with a suture of #2-0 silk. Pneumoperitoneum was released after all ports removed under direct vision. Note , the DIANA drain had been led out through the lateral port site. A simple suture of #0 PDS was placed in the midline of the infraumbilical fascial incision. It was tied, and the pursestring was now tied. All sites were well irrigated. Hemostasis was excellent. Inverted simple sutures of #4-0 Vicryl were placed in the skin. Mastisol and Steri-Strips were positioned. A sterile dressing was placed around the DIANA drain which had been connected to bulb suction. Photographic documentation of the stone was carried out as well. The patient was transferred to recovery in stable and satisfactory condition. FLUIDS ADMINISTERED: 1 L. /[id number]/MODL MTDD
[2017-09-16] MEDS: ACETAMINOPHEN 500 MG TAB PO SCH ×2 (16:16→19:30)
[2017-09-16] MEDS: KETOROLAC 30 MG/1 ML SDV IVP SCH (17:34)
--- NOTE | 2017-09-16 19:32 | HOSPPROG ---
Hospitalist Progress Note Assessment/Plan: DIAGNOSES: -cholelithiasis is likely cause of her recurrent episodes as described in previous notes -no evidence of cardiac, vascular, thromboembolic, or other cause of her symptoms PLANS: * I have requested Dr. Bear to see her from surgery to consider colectomy and patient has met with Dr. Bear and they have agreed to go to the OR today for cholecystectomy * Will review postoperatively Patient seen by me today on both multidisciplinary rounds and hospitalist rounds I reviewed healthy with Dr. Turner SUBJECTIVE: Patient has not had any recurrent episodes overnight but has been NPO OBJECTIVE Vitals reviewed: Stable without fever Gandy Dancer, my review: All sinus Exam: alert oriented skin warm dry color ok resps not labored lungs clear BSs heart regular abd soft nondistended nontender, bowel sounds present essentially an unremarkable abdominal exam limbs warm, no edema iv site ok Abdominal ultrasound shows a 7 mm stone at the gallbladder neck with positive Hurley's sign Laboratory data: Cortisol level random this morning 30.9, TSH 0.046 Objective: Vital Signs Temp Pulse Resp BP Pulse Ox 36.6 C 60 12 111/66 93 09/16/17 15:39 09/16/17 18:31 09/16/17 18:31 09/16/17 18:31 09/16/17 18:31 09/15/17 09/16/17 09/17/17 06:59 06:59 06:59 Intake Total 700 1400 1350 Output Total 10 Balance 700 1400 1340 PT 13.0 SEC (12.0-15.0) 09/13/17 22:30 INR 0.96 (0.83-1.16) 09/13/17 22:30 ICD10 Worksheet Patient Problems: Problems Problem Status Onset Abnormal EKG Acute Chest pain Acute Osteoarthritis of knee Acute Primary localized osteoarthritis of left knee Acute
[2017-09-16] MEDS ORDERED: ceFAZolin 1 GM VIAL IVP SCH (21:00)
[2017-09-16] MEDS: ceFAZolin 2 GM/DEXTROSE 100 ML IV SCH (21:23)
[2017-09-17] MEDS: PATCH REMOVAL 1 EA PATCH TD SCH (00:11)
[2017-09-17] MEDS: ACETAMINOPHEN 500 MG TAB PO SCH ×3 (00:25→15:06)
[2017-09-17] MEDS: KETOROLAC 30 MG/1 ML SDV IVP SCH ×3 (00:25→12:27)
[2017-09-17] MEDS: ceFAZolin 2 GM/DEXTROSE 100 ML IV SCH (05:49)
[2017-09-17] MEDS: ATORVASTATIN CALCIUM 10 MG TAB PO SCH (08:03)
[2017-09-17] MEDS: LEVOTHYROXINE 150 MCG TAB PO SCH (08:04)
[2017-09-17] MEDS: HYDROCHLOROTHIAZIDE 25 MG TAB PO SCH (08:04)
[2017-09-17] MEDS: PANTOPRAZOLE SODIUM 40 MG TAB PO SCH (08:04)
[2017-09-17] MEDS: LISINOPRIL 2.5 MG TAB PO SCH (08:04)
[2017-09-17] MEDS: LIDOCAINE 4%/MENTHOL 1% PATCH TD SCH (08:05)
[2017-09-17 08:44] LABS: PLATELET COUNT 254 10^3/uL (150-400)
[2017-09-17] MEDS ORDERED: HYDROmorphONE/DILAUDID 1 MG/ML INJ IVP PRN (15:00)
--- NOTE | 2017-09-17 15:09 | SOAPPROG ---
SOAP Progress Note Assessment/Plan: 09/17/17 15:06 POD#1 Assessment: Doing well, Eating, Having flatus, Pain controlled, Labs appropriate, Incisions look good DIANA output minimal and serosanguineous ( drain removed) Plan: Discharge Subjective: I'm feeling great Objective: Vital Signs Temp Pulse Resp BP Pulse Ox 36.4 C 51 L 18 142/75 H 94 09/17/17 12:38 09/17/17 12:38 09/17/17 12:38 09/17/17 12:38 09/17/17 12:38 Laboratory Results 09/17/17 08:25 09/17/17 08:25 09/16/17 09/17/17 09/18/17 05:59 05:59 05:59 Intake Total 1400 2800 810 Output Total 440 665 Balance 1400 2360 145 PT 13.0 SEC (12.0-15.0) 09/13/17 22:30 INR 0.96 (0.83-1.16) 09/13/17 22:30 - Time Spent With Patient Time Spent With Patient: 15 - Pending Discharge Pending Discharge Within 24 Hours: Yes Pending Discharge Date: 09/17/17 Pending Discharge Time: 14:00 Physical Exam - Physical Exam General Appearance: WD/WN, alert, no apparent distress Neck: non-tender, full range of motion Respiratory: chest non-tender, lungs clear, normal breath sounds Cardiac/Chest: regular rate, rhythm Abdomen: normal bowel sounds, non-tender, soft, other (DIANA with serous sanginous drainage) Pelvic Exam: deferred Rectal: deferred Back: Normal inspection Skin: normal color, warm/dry Neuro/Psych: no motor/sensory deficits, alert, normal mood/affect, oriented x 3 ICD10 Worksheet Patient Problems: Problems Problem Status Onset Abnormal EKG Acute Chest pain Acute Osteoarthritis of knee Acute Primary localized osteoarthritis of left knee Acute
--- NOTE | 2017-09-17 15:19 | ASMTCMCOM ---
CM Note CM Note Notes: Pts case discussed in morning rounds. Pts DIANA drain is out. No identified needs at this time. CM available for changes. Plan: Independent Date Signed: 09/17/2017 03:19 PM Electronically Signed By:ARON Velez
[2017-09-17 15:26] VITALS: BP 119/62
--- NOTE | 2017-09-17 16:13 | GDS ---
[f rep st] DISCHARGE SUMMARY CONDITION AT DISCHARGE: Improved. DISCHARGE DIAGNOSES: Acute and chronic cholecystitis with cholelithiasis. DISPOSITION: Home. DISCHARGE INSTRUCTIONS: Diet: She is to avoid a high fat diet. She is to avoid constipating foods such as bananas, rice, applesauce, or cheese. Her texture is normal. She will take Tylenol 1000 mg every 8 hours and Toradol 10 mg every 6 hours. When the Toradol prescription runs out, she will continue with Motrin 200 mg every 6. She will take Dilaudid,2-4 mg, for breakthrough. She will continue her home medications of Zestril 2.5 mg daily, levothyroxine 150 mcg daily, lansoprazole 30 mg daily, hydrochlorothiazide 25 mg daily, atorvastatin 10 mg daily. Activity restrictions: She is to lift less than 10 pounds for the next 3 weeks. She is to shower only starting on Friday. She is to keep her Steri-Strips in place. She is to take a multivitamin with 100% of the [employer]UR[employer] of zinc, copper, and C daily. She is to watch for signs of infection, those being superficial: Warmth, tenderness, swelling or pain , Deep space: Fevers, chills, malaise, loss of appetite, or pain. She will follow up with Dr. Jeremy Gomes or his colleagues in office in 2 weeks. HOSPITAL COURSE: Admitted and had a complete workup to make sure there was not a cardiovascular or an aortic aneurysm dissection causing her back, shoulder, and chest pain. Further evaluation showed that she, in fact, did have gallstones and a positive Hurley sign. She was taken to the operating room where a laparoscopic cholecystectomy was performed. There was a small bile leak at surgery. Copious irrigation was used, and a DIANA drain was placed. Note, her laboratories did not show any signs of obstructive changes. Her drain was removed on postoperative day #1. She is taking a regular diet, passing gas, and notes her pain has resolved. She is dismissed on postop day 1. /[id number]/MODL MTDD
--- NOTE | 2017-09-17 20:00 | HOSPPROG ---
Hospitalist Progress Note Assessment/Plan: DIAGNOSES: -cholelithiasis with mild acute cholecystitis -status post laparoscopic cholecystectomy -no evidence of cardiac, vascular, thromboembolic, or other cause of her symptoms PLANS: * I reviewed in detail with Dr. Bear today, and we agreed that this time she is stable for discharge to home * She will follow up in the surgery clinic as well as with primary care doctor lipids SUBJECTIVE: Doing quite well after her surgery yesterday Eating well, ambulating in the hallway No fever symptoms or shortness of breath, plus flatus but no stool yet OBJECTIVE Vitals reviewed: Stable without fever Corrective Therapy Aide, my review: All sinus Exam: alert oriented skin warm dry color ok resps not labored lungs clear BSs heart regular abd lap wounds look good, plus bowel sounds, minimal distension the minimal tenderness limbs warm, no edema iv site ok Laboratory data: Unremarkable CBC and metabolic panel Minimal elevation of hepatic transaminases Objective: Vital Signs Temp Pulse Resp BP Pulse Ox 36.6 C 45 L 16 119/62 97 09/17/17 15:23 09/17/17 15:23 09/17/17 15:23 09/17/17 15:23 09/17/17 15:23 Laboratory Results 09/17/17 08:25 09/17/17 08:25 09/16/17 09/17/17 09/18/17 06:59 06:59 06:59 Intake Total 1400 2800 810 Output Total 440 815 Balance 1400 2360 -5 PT 13.0 SEC (12.0-15.0) 09/13/17 22:30 INR 0.96 (0.83-1.16) 09/13/17 22:30 ICD10 Worksheet Patient Problems: Problems Problem Status Onset Abnormal EKG Acute Chest pain Acute Osteoarthritis of knee Acute Primary localized osteoarthritis of left knee Acute
== END 2017-09-17 16:58 | disposition home or self-care (01) | DRG 419 ==
LOC: F2W 09-14 00:40 → OBSVTOIN 09-14 18:29
PROVIDERS: ADMIT Family Medicine; ATTEND Family Medicine
PROC: 0FT44ZZ Resection of Gallbladder, Percutaneous Endoscopic Approach (ICD-10-PCS; principal; 2017-09-16 13:00)
DX: K80.12 Calculus of gallbladder with acute and chronic cholecystitis without obstruction (principal); I10 Essential (primary) hypertension; E78.5 Hyperlipidemia, unspecified; E66.9 Obesity, unspecified; E03.9 Hypothyroidism, unspecified; G47.33 Obstructive sleep apnea (adult) (pediatric); Z68.38 Body mass index [BMI] 38.0-38.9, adult; Z96.653 Presence of artificial knee joint, bilateral
CPT/HCPCS: 84484-PO; A9500; J0690; J1100; J1170; J1644; J1885; J2060; J2270; J2370; J2405; J2550; J2704; J2785; J3010; Q9961; Q9967

== ENCOUNTER → 2017-10-06 | Outpatient (CLI) | payer OTHER | LOC: FIMAGING 14:52 | PROVIDERS: ATTEND Internal Medicine | DX: Z12.31 Encounter for screening mammogram for malignant neoplasm of breast (principal) ==